=== PATIENT | male | born 1950 | race African-American/Black ===

== ENCOUNTER → 2024-10-07 | Day surgery (SDC) | payer OTHER ==
[~2024-10-07] VITALS: Ht 182.9 cm; Wt 86.2 kg
[~2024-10-07] MED LIST: AML5T GT; ASPI81CH59 PO; BACL20TA PO; ONDANSETRON HCL 4 MG/2 ML VIAL IV ONE; PROPOFOL 10 MG/ML 20 ML IV ONE; SIMV20TA20 PO; TAMS0.4C39 PO; fentaNYL CITRATE 100 MCG/2 ML VL IV PRN; hydrALAZINE HCL 20 MG/ML VL IV PRN
--- NOTE | 2024-10-07 12:41 | DVHHP2 ---
GI H&P Pre-Op Assessment Date: 10/07/24 Chief complaint: + FIT HPI: per clinic note Past medical history: per clinic note Past surgical history: per clinic note Family history: per clinic note Physical exam: General: NAD, AAOX3 HEENT: PERRL, no scleral icterus, normal hearing, gums without lesions or bleeding, oropharynx clear without erythema or exudate. Neck: Supple without enlargement of the thyroid, or lymphadenopathy. Chest: Normal size and shape, no tenderness, lung schaefer clear to auscultation and percussion, nonlabored breathing. Heart: RRR, no murmur Abdomen: non-distended, no tenderness to palpation, +BS, no hepatosplenomegaly Extremities: no edema Neurological: CN II-XII intact, sensation intact in all extremities, 5+ strength in all extremities Skin: No rashes, No jaundice Assessment: - + FIT Plan: - Colonoscopy - Risks (bleeding, infection, perforation, reaction to sedation medications and cardiopulmonary arrest) and benefit of the procedure were explained to patient. Patient agrees to undergo the procedure. GUILLE RIVERA MD October 07, 2024 12:41
[2024-10-07 13:41] VITALS: PULSE 57; RESP 98; TEMP 97.2; O2SAT 98
--- NOTE | 2024-10-07 13:43 | DVHOP2 ---
Operative Report DATE OF OPERATION: 10/07/24 PROCEDURE: Colonoscopy. PREOPERATIVE INDICATION: The patient is a 74 -year-old male undergoing colonoscopy for positive fit test. POSTOPERATIVE DIAGNOSES: 1. 1.4 cm flat right colon polyp was injected with saline. It was removed with hot snare in a piecemeal process. Four clips were applied to the polypectomy site to stop bleeding. 2. 3 cm sigmoid colon polyp was removed with hot snare in a piecemeal process af ter the base was clipped with two hemoclips. 3. Diverticulosis 4. Internal hemorrhoids PROCEDURE PERFORMED BY: Homar Bruner M.D. SCOPE: Olympus videocolonoscope. 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 He was then sedated with the above medications. A rectal examination was performed that was normal. The colonoscope was then passed through the anus into the rectosigmoid and through the descending, transverse, and ascending colon up to the cecum with visualization of the appendiceal orifice, base of the cecum and the ileocecal valve. A 1.4 cm flat right colon polyp was injected with saline. It was removed with hot snare in a piecemeal process. Four clips were applied to the polypectomy site to stop bleeding. A 3 cm sigmoid colon polyp was removed with hot snare in a piecemeal process after the base was clipped with two hemoclips. There was diverticulosis. There were internal hemorrhoids. The colonoscope was then withdrawn. The patient tolerated the procedure well without difficulty. WITHDRAWAL TIME: 20 minutes QUALITY OF THE PREP: [place] Bowel Prep score: 6 COMPLICATIONS : None SPECIMENS: Colon polyps DISPOSITION: D/C to home PLAN: 1. Repeat colonoscopy in 6 months. 2. Await biopsy result HOMAR BRUNER MD October 07, 2024 13:43
--- NOTE | 2024-10-07 13:44 | DVHDS2 ---
Physician Discharge Progress N Final Diagnosis: Colon polyps, diverticulosis, internal hemorrhoids Operations or Procedures: Operations or Procedures Colonoscopy with hot snare polypectomy, saline injection, hemoclipping Condition on Discharge: Good Disposition: Home Discharge Instructions: Diet: Regular Activity: No Restrictions, As Tolerated Medications: Resume previous home medications Follow Up Care: Discharge Statement: "Patient was advised to return to the ER or call 911 if any headaches, dizziness, shortness of breath, chest pain, abdominal pain, bleeding, fevers, or worsening of medical condition. Patient was counseled about treatment plan, medications, possible side effects, patientverbalized understanding. All questions were answered to the best of my ability. This discharge took greater then 30 minutes in planning, reviewing documentation, counseling the patient, and discussing with other team members." GUILLE RIVERA MD October 07, 2024 13:44
[2024-10-07 14:25] VITALS: BP 133/73; PULSE 52; RESP 14; O2SAT 100
== END | disposition home or self-care (01) ==
LOC: GI 10:10
PROVIDERS: ATTEND Internal Medicine Gastroenterology
DX: R19.5 Other fecal abnormalities (principal); D12.2 Benign neoplasm of ascending colon; D12.5 Benign neoplasm of sigmoid colon; K57.30 Diverticulosis of large intestine without perforation or abscess without bleeding; K64.8 Other hemorrhoids; I10 Essential (primary) hypertension; E78.00 Pure hypercholesterolemia, unspecified; N40.0 Benign prostatic hyperplasia without lower urinary tract symptoms; Z79.899 Other long term (current) drug therapy; Z79.82 Long term (current) use of aspirin
CPT/HCPCS: 45381; 45385; 88305; J2704; J7030